=== PATIENT | male | born 1990 | race Caucasian/White ===

== ENCOUNTER 2019-10-20 21:12 | Inpatient (IN) | payer MEDICAID, OTHER ==
[~2019-10-20] VITALS: Ht 175.3 cm; Wt 75.4 kg
[2019-10-20] MEDS ORDERED: HALOPERIDOL 5 MG TABLET PO ONE (22:15)
[2019-10-20] MEDS ORDERED: LORazepam 2 MG TABLET PO ONE (22:15)
[2019-10-20 22:36] LABS: BASOPHILS % (AUTO) 1.1 % (0.0-2.0); EOSINOPHILS % (AUTO) 1.8 % (1.0-6.0); HEMATOCRIT 46.8 % (41-53); HEMOGLOBIN 15.7 g/dL (13.5-17.5); LYMPHOCYTES # (AUTO) 3.5 K/uL (1.0-4.8); LYMPHOCYTES % (AUTO) 37.3 % (22.0-44.0); MEAN CORPUSCULAR HEMOGLOBIN 30.3 pg (26.0-34.0); MEAN CORPUSCULAR HGB CONC 33.6 G/dL (31.0-37.0); MEAN CORPUSCULAR VOLUME 90 fL (80-100); MONOCYTES # (AUTO) 0.4 K/uL (0.1-1.0); MONOCYTES % (AUTO) 4.7 % (2.0-9.0); NEUTROPHILS # (AUTO) 5.1 K/uL (1.8-7.7); NEUTROPHILS % (AUTO) 55.1 % (40.0-70.0); PLATELET COUNT (AUTO) 457 K/uL (150-450); RED BLOOD CELL COUNT(AUTO) 5.19 MIL/uL (4.50-5.90); RED CELL DISTRIBUTION WIDTH 14.5 % (11.5-14.5)
[2019-10-20 22:49] LABS: AMPHET/METH SCREEN,URINE NEGATIVE (NEGATIVE); BARBITURATE SCREEN, URINE NEGATIVE (NEGATIVE); BENZODIAZEPINES SCREEN,URINE NEGATIVE (NEGATIVE); CANNABINOID SCREEN,URINE POSITIVE (NEGATIVE); COCAINE SCREEN,URINE NEGATIVE (NEGATIVE); METHADONE SCREEN, URINE NEGATIVE (NEGATIVE); OPIATE SCREEN,URINE NEGATIVE (NEGATIVE)
[2019-10-20 22:49] LABS: ANION GAP 18 mmol/L (8-16); CALCIUM, TOTAL 8.8 mg/dL (8.8-10.5); CARBON DIOXIDE 20 mmol/L (22-29); CHLORIDE 106 mmol/L (98-107); CREATININE 0.95 mg/dL (0.60-1.30); GLOMERULAR FILTR. RATE CALC > 60 mL/min (>60); GLUCOSE,RANDOM 102 mg/dL (70-110); POTASSIUM 4.3 mmol/L (3.5-5.1); SODIUM SERUM 144 mmol/L (136-145); UREA NITROGEN, BLOOD 6 mg/dL (7-18)
[2019-10-20 22:50] LABS: PHENCYCLIDINE SCREEN,URINE NEGATIVE (NEGATIVE)
[2019-10-20 22:55] LABS: ALANINE AMINOTRANSFERASE 172 U/L (12-78); ALBUMIN 4.3 g/dL (3.4-5.0); ALKALINE PHOSPHATASE 110 U/L (46-116); ASPARTATE AMINOTRANSFERASE 120 U/L (15-37); BILIRUBIN,TOTAL 0.3 mg/dL (0.1-1.0); TOTAL PROTEIN, SERUM 8.2 g/dL (6.4-8.2)
[2019-10-20] MEDS ORDERED: HALOPERIDOL LACTATE 5 MG/ML VIAL IM ONE (23:15)
[2019-10-20] MEDS ORDERED: LORazepam 2 MG/ML VIAL IM ONE (23:15)
[2019-10-20] MEDS ORDERED: DEXTROSE 5%-LACTATED RINGERS 1,000 ML IV ONE (23:30)
[2019-10-20] MEDS ORDERED: THIAMINE HCL 100 MG/ML 2ML VIAL IM ONE (23:30)
[2019-10-20 23:53] LABS: CREATINE KINASE, TOTAL ONLY 227 U/L (39-308)
[2019-10-21] MEDS ORDERED: LORazepam 2 MG TABLET PO PRN
[2019-10-21] MEDS ORDERED: ZOLPIDEM TARTRATE 10 MG TABLET PO PRN
[2019-10-21 02:49] LABS: ANION GAP 7 mmol/L (8-16); CALCIUM, TOTAL 8.4 mg/dL (8.8-10.5); CARBON DIOXIDE 27 mmol/L (22-29); CHLORIDE 108 mmol/L (98-107); CREATININE 0.99 mg/dL (0.60-1.30); GLOMERULAR FILTR. RATE CALC > 60 mL/min (>60); GLUCOSE,RANDOM 87 mg/dL (70-110); POTASSIUM 4.1 mmol/L (3.5-5.1); SODIUM SERUM 142 mmol/L (136-145); UREA NITROGEN, BLOOD 5 mg/dL (7-18)
[2019-10-21 02:55] LABS: ALANINE AMINOTRANSFERASE 155 U/L (12-78); ALBUMIN 3.8 g/dL (3.4-5.0); ALKALINE PHOSPHATASE 93 U/L (46-116); ASPARTATE AMINOTRANSFERASE 104 U/L (15-37); BILIRUBIN,TOTAL 0.2 mg/dL (0.1-1.0); TOTAL PROTEIN, SERUM 7.2 g/dL (6.4-8.2)
[2019-10-21] MEDS ORDERED: HALOPERIDOL 5 MG TABLET PO PRN ×2 (12:00)
[2019-10-21] MEDS ORDERED: INFLUENZA VIRUS VACCINE QVS 2019-20 (3YR+)/PF 60 MCG/0.5 ML SYRINGE IM ONE (12:45)
[2019-10-21 14:42] VITALS: BP 116/70
[2019-10-21 15:42] VITALS: BP 118/66
[2019-10-21 16:12] VITALS: BP 118/66
[2019-10-21 16:42] VITALS: BP 123/74
[2019-10-21] MEDS: LORazepam 2 MG TABLET PO PRN ×2 (16:55→21:28)
[2019-10-21 17:42] VITALS: BP 133/63
[2019-10-21 21:42] VITALS: BP 124/62
[2019-10-22] VITALS (7 sets, daily range): BP systolic 122–142; BP diastolic 69–81
[2019-10-22 07:40] LABS: BASOPHILS % (AUTO) 0.7 % (0.0-2.0); EOSINOPHILS % (AUTO) 2.8 % (1.0-6.0); HEMATOCRIT 46.8 % (41-53); HEMOGLOBIN 15.6 g/dL (13.5-17.5); LYMPHOCYTES # (AUTO) 1.4 K/uL (1.0-4.8); LYMPHOCYTES % (AUTO) 18.3 % (22.0-44.0); MEAN CORPUSCULAR HEMOGLOBIN 30.1 pg (26.0-34.0); MEAN CORPUSCULAR HGB CONC 33.3 G/dL (31.0-37.0); MEAN CORPUSCULAR VOLUME 90 fL (80-100); MONOCYTES # (AUTO) 0.8 K/uL (0.1-1.0); MONOCYTES % (AUTO) 10.3 % (2.0-9.0); NEUTROPHILS # (AUTO) 5.3 K/uL (1.8-7.7); NEUTROPHILS % (AUTO) 67.9 % (40.0-70.0); PLATELET COUNT (AUTO) 428 K/uL (150-450); RED BLOOD CELL COUNT(AUTO) 5.19 MIL/uL (4.50-5.90)
[2019-10-22 07:54] LABS: HEMOGLOBIN A1C 5.3 % (3.8-5.6)
[2019-10-22 08:00] LABS: ALANINE AMINOTRANSFERASE 164 U/L (12-78); ALBUMIN 4.2 g/dL (3.4-5.0); ALKALINE PHOSPHATASE 109 U/L (46-116); ANION GAP 11 mmol/L (8-16); ASPARTATE AMINOTRANSFERASE 120 U/L (15-37); BILIRUBIN,TOTAL 1.1 mg/dL (0.1-1.0); CALCIUM, TOTAL 9.5 mg/dL (8.8-10.5); CARBON DIOXIDE 27 mmol/L (22-29); CHLORIDE 102 mmol/L (98-107); CHOL/HDL RATIO 2.5 (4.2-7.3); CHOLESTEROL 194 mg/dL (131-200); CREATININE 1.07 mg/dL (0.60-1.30); GLOMERULAR FILTR. RATE CALC > 60 mL/min (>60); GLUCOSE,RANDOM 70 mg/dL (70-110); HDL CHOLESTEROL 77 mg/dL (40-60); LDL CHOL (CALC.) 101 mg/dL (0-130); POTASSIUM 3.7 mmol/L (3.5-5.1); SODIUM SERUM 140 mmol/L (136-145); TOTAL PROTEIN, SERUM 8.1 g/dL (6.4-8.2); TRIGLYCERIDES 80 mg/dL (15-150); UREA NITROGEN, BLOOD 11 mg/dL (7-18)
[2019-10-22] MEDS ORDERED: HydrOXYzine PAMOATE 50 MG CAPSULE PO PRN (12:45)
[2019-10-22] MEDS ORDERED: PROMETHAZINE HCL 25 MG TABLET PO PRN (12:45)
[2019-10-22] MEDS ORDERED: LOPERAMIDE HCL 2 MG CAPSULE PO PRN (12:45)
[2019-10-22] MEDS ORDERED: TUBERCULIN, PURIFIED PROTEIN DERIVATIVE 5 TU/0.1 ML SYRINGE ID ONE (12:45)
[2019-10-22] MEDS ORDERED: CYANOCOBALAMIN 1,000 MCG/ML VIAL IM ONE (12:45)
[2019-10-22] MEDS ORDERED: GuaiFENesin/D-METHORPHAN [SUGAR-FREE] 200-20MG/10 ML SYRUP UDCUP PO PRN (12:45)
[2019-10-22] MEDS ORDERED: OLANZapine 5 MG RAPDIS TABLET PO PRN (12:45)
[2019-10-22] MEDS ORDERED: MAG HYDROX/AL HYDROX/SIMETH ES 30 ML SUSPENSION UDCUP PO PRN (12:45)
[2019-10-22] MEDS ORDERED: MAGNESIUM HYDROXIDE SUSPENSION 30 ML UDCUP PO PRN (12:45)
[2019-10-22] MEDS ORDERED: ACETAMINOPHEN 325 MG TABLET PO PRN (12:45)
[2019-10-22] MEDS: THIAMINE HCL 100 MG TABLET PO SCH (16:11)
[2019-10-22] MEDS: LORazepam 2 MG TABLET PO PRN ×2 (16:11→20:44)
[2019-10-22] MEDS ORDERED: OLANZapine 10 MG RAPDIS TABLET PO SCH (21:00)
[2019-10-23 04:37] VITALS: BP 122/64
[2019-10-23 04:38] VITALS: BP 122/64
[2019-10-23 08:10] VITALS: BP 120/66
[2019-10-23 08:28] LABS: HEMOGLOBIN A1C 5.1 % (3.8-5.6)
[2019-10-23] MEDS: THIAMINE HCL 100 MG TABLET PO SCH ×2 (08:37→16:06)
[2019-10-23] MEDS: LORazepam 2 MG TABLET PO SCH ×4 (08:37→20:59)
[2019-10-23] MEDS: NICOTINE POLACRILEX 2 MG LOZENGE PO PRN ×4 (08:37→17:06)
[2019-10-23] MEDS: FOLIC ACID 1 MG TABLET PO SCH (08:37)
[2019-10-23] MEDS: MULTIVITAMINS WITH MINERALS, THERAPEUTIC TABLET PO SCH (08:37)
[2019-10-23 08:41] LABS: CHOL/HDL RATIO 2.6 (4.2-7.3); FREE T4 (FREE THYROXINE) 1.05 ng/dL (0.76-1.46); THYROID STIMULATING HORMONE 2.49 uIU/mL (0.36-3.74)
[2019-10-23] MEDS ORDERED: OLAN10TA22 PO (13:48)
[2019-10-23] MEDS ORDERED: NALT50TA PO (13:48)
[2019-10-23 16:00] VITALS: BP 116/73
[2019-10-23] MEDS: LORazepam 2 MG TABLET PO PRN ×2 (18:14→22:16)
[2019-10-23] MEDS ORDERED: OLANZapine 5 MG RAPDIS TABLET PO SCH (21:00)
[2019-10-24 06:13] VITALS: BP 108/66
[2019-10-24] MEDS: LORazepam 2 MG TABLET PO SCH (08:43)
[2019-10-24] MEDS: MULTIVITAMINS WITH MINERALS, THERAPEUTIC TABLET PO SCH (08:43)
[2019-10-24] MEDS: FOLIC ACID 1 MG TABLET PO SCH (08:43)
[2019-10-24] MEDS: THIAMINE HCL 100 MG TABLET PO SCH (08:43)
[2019-10-24] MEDS: NICOTINE POLACRILEX 2 MG LOZENGE PO PRN (08:45)
[2019-10-24] MEDS ORDERED: NALTREXONE HCL 50 MG TABLET PO SCH (09:00)
[2019-10-25] MEDS ORDERED: LORazepam 1 MG TABLET PO PRN (07:00)
[2019-10-25] MEDS ORDERED: LORazepam 1 MG TABLET PO SCH (09:00)
[2019-10-25] MEDS ORDERED: LOPERAMIDE HCL 2 MG CAPSULE PO PRN (12:45)
[2019-10-26] MEDS ORDERED: LORazepam 1 MG TABLET PO PRN (07:00)
== END 2019-10-24 09:10 | disposition home or self-care (01) | DRG 750 ==
LOC: EMS 21:13 → B3A 10-21 10:56
PROVIDERS: ADMIT Psychiatry & Neurology Psychiatry; ATTEND Psychiatry & Neurology Psychiatry
DX: F25.0 Schizoaffective disorder, bipolar type (principal); E87.2 Acidosis; R45.850 Homicidal ideations; F43.10 Post-traumatic stress disorder, unspecified; Z78.1 Physical restraint status; F12.20 Cannabis dependence, uncomplicated; F41.9 Anxiety disorder, unspecified; F10.229 Alcohol dependence with intoxication, unspecified
CPT/HCPCS: 80074; 83036; 83735; 84439; 84443; 86592; 99291; G0480; J1630; J2060; J3411; J3420